=== PATIENT | female | born 1945 | race Caucasian/White ===

== ENCOUNTER 2016-10-05 10:21 | Outpatient (CLI) | payer MEDICARE, BC | END 2016-10-05 10:22 | disposition home or self-care (01) | DRG 556 | LOC: CONVCARE 10:21 | PROVIDERS: ATTEND Orthopaedic Surgery | DX: M25.551 Pain in right hip (principal); Z96.641 Presence of right artificial hip joint | CPT/HCPCS: 36415; 73502; 85651 ==

== ENCOUNTER 2018-01-11 09:00 | Outpatient (CLI) | payer MEDICARE, BC | END 2018-01-11 09:01 | disposition home or self-care (01) | DRG 313 | LOC: CONVCARE 09:00 | PROVIDERS: ATTEND Orthopaedic Surgery | DX: R07.89 Other chest pain (principal) | CPT/HCPCS: 71250 ==